=== PATIENT | female | born 1995 | race Caucasian/White ===

== ENCOUNTER 2024-04-12 03:49 | Day surgery (SDC) | payer OTHER ==
[2024-04-09 09:11] VITALS: BMI 30.9
[2024-04-12] MEDS ORDERED: FENTANYL CITRATE/PF 50 MCG/ML VIAL ONE ×2 (07:35→08:52)
[2024-04-12] MEDS ORDERED: LIDOCAINE HCL/PF 2% SDV 5ML VIAL ONE (07:35)
[2024-04-12] MEDS ORDERED: MIDAZOLAM HCL 2 MG/2 ML SINGLE DOSE VIAL ONE (07:35)
[2024-04-12] MEDS ORDERED: PROPOFOL 20 ML ONE ×2 (07:35→08:41)
[2024-04-12] MEDS ORDERED: ONDANSETRON 4 MG/2 ML VIAL IVPUSH PRN (07:58)
[2024-04-12] MEDS ORDERED: LACTATED RINGERS SOLUTION 1,000 ML IV SCH (08:00)
[2024-04-12] MEDS ORDERED: ceFAZolin SODIUM 1 GM VIAL ONE (08:47)
[2024-04-12] MEDS: ceFAZolin SODIUM 1 GM VIAL IVPB ONE (08:48)
[2024-04-12] MEDS ORDERED: ONDANSETRON 4 MG/2 ML VIAL ONE (08:49)
[2024-04-12] MEDS ORDERED: DEXAMETHASONE SOD PHOSPHATE 4 MG/1 ML VIAL ONE (08:49)
[2024-04-12 09:47] VITALS: RESP 16
[2024-04-12 10:12] VITALS: TEMP 97.6
[2024-04-12 10:35] VITALS: BP 104/60; PULSE 52
== END 2024-04-12 10:56 | disposition home or self-care (01) ==
LOC: JASU-SURG 03:49
PROVIDERS: ATTEND Obstetrics & Gynecology
PROC: 10D17ZZ Extraction of Products of Conception, Retained, Via Natural or Artificial Opening (ICD-10-PCS; principal; 2024-04-12 08:00)
DX: O02.1 Missed abortion (principal)
CPT/HCPCS: 86850; 86900; 86901; 88305-TC; 94760

== ENCOUNTER 2024-09-20 21:25 | Emergency (ER) | payer OTHER ==
[2024-09-20 21:37] VITALS: BP 123/75; PULSE 86; RESP 17; TEMP 98.7; BMI 31.1
[2024-09-20 22:35] LABS: BASO % 0.8 % (0-2.0); EOS % 2.7 % (0-4.5); HEMATOCRIT 33.4 % (32.4-45.2); HEMOGLOBIN 11.4 GM/dL (10.7-15.3); LYMPH % 25.3 % (8-40); MCH 31.2 pg (25.7-33.7); MCHC 34.1 g/dl (32.0-36.0); MEAN CELL VOLUME 91.3 fl (80-96); MEAN PLT VOLUME 7.2 fl (7.5-11.1); MONO % 7.9 % (3.8-10.2); NEUT % 63.3 % (42.8-82.8); PLATELET COUNT 308 10^3/uL (134-434); RBC 3.66 M/mm3 (3.60-5.2); RDW 12.8 % (11.6-15.6); WHITE BLOOD COUNT 12.9 K/mm3 (4.0-10.0)
[2024-09-20 22:37] LABS: EPI CELLS 8 /uL (0-25.1); HYALINE CASTS 0 /uL (0-3.1); PH,URINE 6.5 (5.0-8.0); URINE APPEARANCE CLEAR; URINE BACTERIA 204 /uL (0-1359); URINE BILIRUBIN NEGATIVE (NEGATIVE); URINE COLOR YELLOW; URINE GLUCOSE (UA) NEGATIVE (NEGATIVE); URINE KETONE NEGATIVE (NEGATIVE); URINE LEUK ESTERASE TRACE (NEGATIVE); URINE NITRITE NEGATIVE (NEGATIVE); URINE PROTEIN NEGATIVE (NEGATIVE); URINE RBC 5 /uL (0-23.9); URINE UROBILINOGEN 0.2 mg/dL (0.2-1.0); URINE WBC 5 /uL (0-25.8)
[2024-09-20 23:01] LABS: POTASSIUM 3.9 mmol/L (3.5-5.1)
[2024-09-20 23:03] LABS: ALBUMIN 3.3 g/dl (3.4-5.0); BLOOD UREA NITROGEN 8.6 mg/dL (7-18); CALCIUM 9.1 mg/dL (8.5-10.1)
[2024-09-20 23:06] LABS: CREATININE 0.5 mg/dL (0.55-1.3)
[2024-09-20 23:08] LABS: BILIRUBIN,TOTAL 0.2 mg/dL (0.2-1); TOT PROT 6.8 g/dl (6.4-8.2)
== END 2024-09-21 00:59 | disposition home or self-care (01) ==
LOC: JER 21:25
DX: O20.8 Other hemorrhage in early pregnancy (principal); Z3A.18 18 weeks gestation of pregnancy
CPT/HCPCS: 36415; 76815-TC; 80053; 81003; 84702; 85025; 86850; 86900; 86901; 87077; 87086; 99284-25

== ENCOUNTER 2025-02-10 17:36 | Inpatient (IN) | payer OTHER ==
[2025-02-10] MEDS: ELECTROLYTE-148 SOLN 1,000 ML IV SCH (21:00)
[2025-02-10 21:29] LABS: ABSOLUTE IMMATURE GRANULOCYTES 0.11 x10^3/uL (0.0-0.031); BASOPHILS # 0.05 x10^3/uL (0.01-0.08); EOSINOPHIL % 1.5 % (0.7-5.8); HEMATOCRIT 36.6 % (34.1-44.9); HEMOGLOBIN 11.9 g/dL (11.2-15.7); MCHC 32.5 g/dl (32.2-35.5); MEAN CELL VOLUME 93.4 fl (79.4-94.8); MEAN PLT VOLUME 9.5 fl (9.4-12.3); MONOCYTE # 1.21 x10^3/uL (0.24-0.86); PLATELET COUNT 279 x10^3/uL (182-369); RDW 13.4 % (12.1-16.5)
[2025-02-10 21:36] LABS: INR 0.95 (0.83-1.09); PROTHROMBIN TIME (PATIENT) 10.5 SEC (9.7-13.0)
[2025-02-10 21:39] LABS: ACTIVATED PTT 24.8 SECONDS (25.2-36.5)
[2025-02-10 21:49] LABS: POTASSIUM 4.2 mmol/L (3.5-5.1)
[2025-02-10] MEDS ORDERED: AMPICILLIN SODIUM 2 GM VIAL ONE (21:50)
[2025-02-10] MEDS ORDERED: SODIUM CHLORIDE 100 ML IVPB ONE (21:50)
[2025-02-10 21:53] LABS: BLOOD UREA NITROGEN 11.3 mg/dL (7-18); CALCIUM 8.9 mg/dL (8.5-10.1)
[2025-02-10] MEDS: AMPICILLIN - 2 GM in SODIUM CHLORIDE 100 ML IVPB ONE (21:55)
[2025-02-10 21:56] LABS: CREATININE 0.6 mg/dL (0.55-1.3)
[2025-02-10] MEDS ORDERED: FENTANYL/BUPIVACAINE/NS/PF - PCEA - 50 ML DISP.SYRIN EP ONE (22:23)
[2025-02-10] MEDS: FENTANYL/BUPIVACAINE/NS/PF - PCEA - 50 ML DISP.SYRIN EP SCH (22:27)
[2025-02-10 22:44] LABS: HIV INTERPRETATION NEGATIVE (NEGATIVE)
[2025-02-11] MEDS ORDERED: NALOXONE HCL 0.4 MG/ML VIAL IVPUSH PRN (00:06)
[2025-02-11 00:25] VITALS: BMI 33.7
[2025-02-11] MEDS ORDERED: FENTANYL/BUPIVACAINE/NS/PF - PCEA - 50 ML DISP.SYRIN EP ONE ×3 (01:51→07:52)
[2025-02-11] MEDS ORDERED: AMPICILLIN SODIUM 1 GM VIAL ONE ×2 (01:52→05:41)
[2025-02-11] MEDS ORDERED: SODIUM CHLORIDE 100 ML IVPB ONE ×2 (01:52→05:41)
[2025-02-11] MEDS: AMPICILLIN - 1 GM in SODIUM CHLORIDE 100 ML IVPB ONE (01:57)
[2025-02-11] MEDS: AMPICILLIN - 1 GM in SODIUM CHLORIDE 100 ML IVPB SCH (05:58)
[2025-02-11] MEDS: OXYTOCIN 30 UNITS in 0.9% NS 30 UNIT/500 ML INFUS.BAG IVPB SCH (09:05)
[2025-02-11] MEDS ORDERED: OXYTOCIN 30 UNITS in 0.9% NS 30 UNIT/500 ML INFUS.BAG IVPB ONE (09:05)
[2025-02-11] MEDS ORDERED: LIDOCAINE HCL 1% PRESERVATIVE FREE - 30ML VIAL ONE (09:31)
[2025-02-11] MEDS ORDERED: OXYTOCIN 20 UNITS in 0.9% NS 20 UNIT/1,000 ML INFUS.BAG IV ONE (09:31)
[2025-02-11] MEDS: OXYTOCIN 20 UNITS in 0.9% NS 20 UNIT/1,000 ML INFUS.BAG IV SCH (12:12)
[2025-02-11] MEDS ORDERED: ACETAMINOPHEN 325 MG TABLET (FP) PO PRN (12:25)
[2025-02-11] MEDS ORDERED: METHYLERGONOVINE MALEATE 0.2 MG/1 ML AMP IM PRN (12:25)
[2025-02-11] MEDS ORDERED: BENZOCAINE 20% 57 GM BOTTLE TP PRN (12:25)
[2025-02-11] MEDS ORDERED: WITCH HAZEL 50% (TUCKS) 40 PAD/JAR PAD TP PRN (12:25)
[2025-02-11] MEDS ORDERED: BISACODYL 10 MG SUPP.RECT RC PRN (12:25)
[2025-02-11] MEDS ORDERED: oxyCODONE HCL 5 MG TABLET PO PRN (12:25)
[2025-02-11] MEDS ORDERED: BENZOCAINE 28 GM HEMORRHOIDAL OINTMENT TP PRN (12:25)
[2025-02-11 13:21] LABS: CORD BASE EXCESS -5.2 mmol/L (0-2); CORD HCO3 24.1 mmHg (20-29); CORD PCO2 62.4 mmHg (30-78); CORD pH 7.205 (7.14-7.44)
[2025-02-11 13:22] LABS: CORD BASE EXCESS -4.2 mmol/L (0-2); CORD HCO3 22.8 mmHg (20-29); CORD PCO2 48.3 mmHg (30-78); CORD pH 7.291 (7.14-7.44)
[2025-02-11 15:32] VITALS: RESP 18
[2025-02-11] MEDS: IBUPROFEN 600 MG TABLET (FP) PO PRN (19:25)
[2025-02-12 06:39] LABS: BASOPHILS # 0.04 x10^3/uL (0.01-0.08); EOSINOPHIL % 1.4 % (0.7-5.8); EOSINOPHILS # 0.21 x10^3/uL (0.04-0.36); HEMATOCRIT 27.9 % (34.1-44.9); HEMOGLOBIN 8.9 g/dL (11.2-15.7); MCHC 31.9 g/dl (32.2-35.5); MEAN CELL VOLUME 96.2 fl (79.4-94.8); MEAN PLT VOLUME 9.6 fl (9.4-12.3); MONOCYTE # 1.24 x10^3/uL (0.24-0.86); MONOCYTE % 8.5 % (4.7-12.5); PLATELET COUNT 220 x10^3/uL (182-369); RDW 13.8 % (12.1-16.5)
[2025-02-12] MEDS: PRENATAL VITAMINS W/ FOLIC ACID TABLET (FP) PO SCH (09:42)
[2025-02-12] MEDS: FERROUS SO4 325 MG TABLET (FP) PO SCH (12:14)
[2025-02-12] MEDS ORDERED: SENNOSIDES/DOCUSATE COMBO (SENNA PLUS) TABLET (UD) PO PRN (22:00)
[2025-02-13 07:58] LABS: HEMATOCRIT 28.5 % (34.1-44.9); MCHC 31.6 g/dl (32.2-35.5); MEAN CELL VOLUME 96.6 fl (79.4-94.8); MEAN PLT VOLUME 9.7 fl (9.4-12.3); PLATELET COUNT 225 x10^3/uL (182-369); RDW 13.8 % (12.1-16.5)
[2025-02-13 10:08] VITALS: BP 117/67; PULSE 93; TEMP 98.8
== END 2025-02-13 17:25 | disposition home or self-care (01) | DRG 560 ==
LOC: JDEL 17:36 → JLDR 20:35 → J3W 02-11 14:35
PROVIDERS: ADMIT Obstetrics & Gynecology; ATTEND Obstetrics & Gynecology
PROC: 10E0XZZ Delivery of Products of Conception, External Approach (ICD-10-PCS; principal; 2025-02-11)
PROC: 0KQM0ZZ Repair Perineum Muscle, Open Approach (ICD-10-PCS; 2025-02-11)
PROC: 0W8NXZZ Division of Female Perineum, External Approach (ICD-10-PCS; 2025-02-11)
DX: O70.1 Second degree perineal laceration during delivery (principal); O99.824 Streptococcus B carrier state complicating childbirth; O99.214 Obesity complicating childbirth; Z3A.39 39 weeks gestation of pregnancy; Z37.0 Single live birth
CPT/HCPCS: 36415; 36600; 59025; 59409; 80048; 82803; 85025; 85027; 85610; 85730; 86780; 86850; 86900; 86901; 87389; 88307-TC